=== PATIENT | female | born 1955 | race Caucasian/White ===

== ENCOUNTER 2017-06-27 08:36 | Emergency (ER) | payer OTHER ==
[~2017-06-27] VITALS: Ht 162.6 cm; Wt 63.5 kg
[~2017-06-27 08:36] MED LIST: ASA81 MG PO; Z.0.ALPRAZOLAM1 MG PO; Z.0.NEXIUM40 MG PO; Z.1.DIOVAN HCT 1601 PO; [UNRECOGNIZED DRUG - CODE] PO
--- NOTE | 2017-06-27 10:43 | Diagnostic Imaging Report ---
EXAM: WRIST COMPLETE LEFT DATE: 06/27/2017 10:14 AM INDICATION: Fall COMPARISON: None FINDINGS: Splint material obscures detail. Impacted distal radial metaphyseal fracture present with probable intra-articular extension. Almost thyroid inadequately evaluated. 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 Questionable lucency scaphoid waist. IMPRESSION: Impacted distal radial metaphyseal fracture with possible intra-articular extension. Probable nondisplaced radial styloid fracture. Scaphoid incompletely evaluated. Nondisplaced fracture possible. Signed by: Dr. Higinio Guzman MD on 06/27/2017 10:40 AM
--- NOTE | 2017-06-27 10:44 | Diagnostic Imaging Report ---
EXAM: FOREARM LEFT 2 VIEW DATE: 06/27/2017 9:43 AM INDICATION: Fall COMPARISON: None FINDINGS: Impacted distal radial metaphyseal fracture present. Ulnar styloid fracture suspected. Remainder of forearm unremarkable. IMPRESSION: Wrist fractures separately described. Signed by: Dr. Higinio Guzman MD on 06/27/2017 10:41 AM
[2017-06-27] MEDS ORDERED: HYDROCODONE/APAP 10MG-325MG TAB PO ONE (10:45)
--- NOTE | 2017-06-27 10:45 | Diagnostic Imaging Report ---
EXAM: RIBS UNILAT W/CXR DATE: 06/27/2017 9:43 AM INDICATION: Fall COMPARISON: None FINDINGS: The heart is not enlarged. There is no pneumothorax. Hazy opacity overlies the left lung base. No depressed rib fracture identified. IMPRESSION: Minimal left basilar atelectasis. No definite depressed rib fracture. Signed by: Dr. Higinio Guzman MD on 06/27/2017 10:42 AM
--- NOTE | 2017-06-27 11:56 | Diagnostic Imaging Report ---
EXAM: HAND 3+ VIEWS LEFT DATE: 06/27/2017 10:47 AM INDICATION: Rule out scaphoid fracture COMPARISON: Radiographs of same day FINDINGS: Three-view left hand. Splint material obscures detail. Impacted distal radial fracture with intra-articular extension again noted. No distinct step-off or gap identified. There is a 5 faint lucency in the scaphoid waist and the ulnar styloid. IMPRESSION: Impacted distal radial intra-articular fracture and nondisplaced ulnar styloid fracture present. Lucency in the scaphoid waist raises question of nondisplaced fracture. Signed by: Dr. Higinio Guzman MD on 06/27/2017 11:53 AM
[2017-07-02] MEDS ORDERED: SINEMET 25-1001 EACH PO (12:01)
[2017-07-02] MEDS ORDERED: DIOVAN160 MG PO (12:02)
[2017-07-02] MEDS ORDERED: PANTOPRAZOLE SO40 MG PO (12:02)
[2017-07-02] MEDS ORDERED: PROBIOTIC & AC1 EACH PO (12:02)
[2017-07-02] MEDS ORDERED: CALCIUM CARBON500 MG PO (12:03)
[2017-07-02] MEDS ORDERED: SERTRALINE HCL50 MG PO (12:03)
[2017-07-02] MEDS ORDERED: VITAMIN D400 UNIT PO (12:04)
[2017-07-02] MEDS ORDERED: FEOSOL45 MG PO (12:05)
[2017-07-02] MEDS ORDERED: FLINTSTONES1 EACH PO (12:06)
[2017-07-02] MEDS ORDERED: METOPROLOL SUCC25 MG PO (12:06)
[2017-07-02] MEDS ORDERED: CRESTOR10 MG PO (12:07)
[2017-07-02] MEDS ORDERED: AZILECT1 MG PO (12:08)
== END 2017-06-27 12:55 | disposition home or self-care (01) ==
LOC: ER 08:36
DX: S52.572A Other intraarticular fracture of lower end of left radius, initial encounter for closed fracture (principal); W01.0XXA Fall on same level from slipping, tripping and stumbling without subsequent striking against object, initial encounter; Y93.89 Activity, other specified; Y92.511 Restaurant or cafe as the place of occurrence of the external cause; G20 Parkinson's disease; R07.81 Pleurodynia
CPT/HCPCS: 71101; 99283

== ENCOUNTER → 2017-07-05 | Day surgery (SDC) | payer OTHER ==
[~2017-07-05] MED LIST changes: +AZILECT1 MG PO; +CALCIUM CARBON500 MG PO; +CEFAZOLIN SOD 1 GM VIAL ONE; +CRESTOR10 MG PO; +DEXAMETHASONE SOD PHOS INJ 4 MG/ML VIAL ONE; +DIOVAN160 MG PO; +FENTANYL CITRATE/PF 100MCG/2 ML INJ ONE; +FEOSOL45 MG PO; +FLINTSTONES1 EACH PO; +ISOFLURANE INHAL SOLN 250 ML BTL INH ONE; +KETOROLAC TROMETHAMINE 30 MG/ML VIAL ONE; +LIDOCAINE HCL 2% LOCAL INJ 5 ML SDV VIAL INJ ONE; +METOPROLOL SUCC25 MG PO; +MIDAZOLAM HCL 2 MG/2 ML VIAL ONE; +ONDANSETRON HCL INJ 2 MG/ML VIAL ONE; +PANTOPRAZOLE SO40 MG PO; +PROBIOTIC & AC1 EACH PO; +PROPOFOL IV EMULSION 10 MG/ML 20 ML VIAL ONE; +SERTRALINE HCL50 MG PO; +SINEMET 25-1001 EACH PO; +VITAMIN D400 UNIT PO
--- NOTE | 2017-07-05 08:22 | Operative Report ---
DATE OF PROCEDURE: July 05, 2017 EMERGENCY COMMUNICATIONS OFFICER: Bridger Rader PA-C The patient was brought to the operating room for induction of anesthesia. Throughout this case, my PA's assistance was necessary for retraction of soft tissue and positioning of the extremity. This allows for efficient and technically successful execution of the operation and is considered medically necessary. PREOPERATIVE DIAGNOSIS: Displaced left distal radius fracture. POSTOPERATIVE DIAGNOSIS: Displaced left distal radius fracture. PROCEDURE: Closed reduction and percutaneous pin fixation of left distal radius. INDICATIONS: The patient is a 62-year-old lady who has an angulated left distal radius fracture. She also has underlying osteoporosis. The findings and options were discussed in the clinic. She was very anxious and not interested in any attempts at a closed reduction in the clinic. We plan on a closed suction with percutaneous pin fixation in the operating room. The risks and benefits were discussed. The underlying osteoporosis was discussed. She states she understands and wishes to proceed. DESCRIPTION OF PROCEDURE: The patient was brought to the operating room and placed under general anesthetic. Her left upper extremity was prepped and draped in a sterile manner. A preoperative time out was performed. A closed reduction was performed. Satisfactory reduction was confirmed with a C-arm image intensifier. A single 0.062 K-wire was placed from the radial styloid down the radial shaft. This was placed with a volar inclination. The pin was cut short and capped after final x-rays confirmed satisfactory reduction and positioning of the hardware. A sterile bandage was applied. She was placed into a well-molded sugar-tong splint. There was no blood loss. All needle and sponge counts were correct. Job#: [id number] ROJELIO
== END | disposition home or self-care (01) ==
LOC: OR 06:57
PROVIDERS: ATTEND Specialist
DX: S52.532A Colles' fracture of left radius, initial encounter for closed fracture (principal); S22.32XA Fracture of one rib, left side, initial encounter for closed fracture; M81.0 Age-related osteoporosis without current pathological fracture; I10 Essential (primary) hypertension; G20 Parkinson's disease; K21.9 Gastro-esophageal reflux disease without esophagitis; W01.0XXA Fall on same level from slipping, tripping and stumbling without subsequent striking against object, initial encounter; Y92.511 Restaurant or cafe as the place of occurrence of the external cause; Z01.810 Encounter for preprocedural cardiovascular examination; Z79.82 Long term (current) use of aspirin
CPT/HCPCS: 25606; 93005; J0690; J1100; J1885; J2001; J2250; J2405; 76000

== ENCOUNTER 2018-01-27 11:55 | Inpatient (IN) | payer OTHER ==
[~2018-01-27] VITALS: Ht 162.6 cm; Wt 63.5 kg
[~2018-01-27 11:55] MED LIST changes: -CEFAZOLIN SOD 1 GM VIAL ONE; -DEXAMETHASONE SOD PHOS INJ 4 MG/ML VIAL ONE; -FENTANYL CITRATE/PF 100MCG/2 ML INJ ONE; -ISOFLURANE INHAL SOLN 250 ML BTL INH ONE; -KETOROLAC TROMETHAMINE 30 MG/ML VIAL ONE; -LIDOCAINE HCL 2% LOCAL INJ 5 ML SDV VIAL INJ ONE; -MIDAZOLAM HCL 2 MG/2 ML VIAL ONE; -ONDANSETRON HCL INJ 2 MG/ML VIAL ONE; -PROPOFOL IV EMULSION 10 MG/ML 20 ML VIAL ONE
[2018-01-27] MEDS ORDERED: LOSARTAN POTASS25 MG PO (12:46)
[2018-01-27 12:47] LABS: BASOPHILS % 0.2 % (0.0-1.0); EOSINOPHILS % 0.1 % (0.0-6.0); HEMATOCRIT 33.1 % (34.2-44.1); LYMPHOCYTES # (AUTO) 0.8 (1.0-3.2); LYMPHOCYTES % 7.9 % (18.0-39.1); MEAN CORPUSCULAR HEMOGLOBIN 30.8 pg (28-32); MEAN CORPUSCULAR HGB CONC 33.2 g/dL (31-35); MEAN CORPUSCULAR VOLUME 92.7 fL (81-99); MONOCYTES # (AUTO) 0.8 (0.2-0.8); MONOCYTES % 8.3 % (4.4-11.3); NEUTROPHILS # (AUTO) 7.9 (2.1-6.9); NEUTROPHILS % 82.6 % (38.7-80.0); PLATELET COUNT 258 x10e3/uL (140-360); RED BLOOD COUNT 3.57 x10e6/uL (3.6-5.1); RED CELL DISTRIBUTION WIDTH 13.1 % (11.7-14.4)
[2018-01-27 13:07] LABS: ALANINE AMINOTRANSFERASE 36 IU/L (0-55); ALBUMIN 3.3 g/dL (3.5-5.0); ALBUMIN/GLOBULIN RATIO 1.1 (0.8-2.0); ALKALINE PHOSPHATASE 76 IU/L (40-150); ANION GAP 15.7 mmol/L (8-16); BLOOD UREA NITROGEN 13 mg/dL (7-26); BUN/CREATININE RATIO 21 (6-25); CALCIUM 8.9 mg/dL (8.4-10.2); CARBON DIOXIDE 22 mmol/L (22-29); CHLORIDE 102 mmol/L (98-107); CREATININE, SERUM 0.63 mg/dL (0.57-1.11); EST GLOMERULAR FILTRATION RATE > 60 ML/MIN (60-); GLUCOSE 100 mg/dL (74-118); POTASSIUM 3.7 mmol/L (3.5-5.1); SODIUM 136 mmol/L (136-145)
[2018-01-27 13:18] LABS: AMPHETAMINES SCREEN,URINE NEGATIVE (NEGATIVE); BENZODIAZEPINES SCREEN,URINE NEGATIVE (NEGATIVE); PHENCYCLIDINE SCREEN,URINE NEGATIVE (NEGATIVE)
[2018-01-27 13:23] LABS: CLARITY,URINE CLEAR (CLEAR); COLOR,URINE YELLOW (YELLOW); LEUKOCYTE ESTERASE ,URINE NEGATIVE (NEGATIVE); NITRITE,URINE NEGATIVE (NEGATIVE); PROTEIN,URINE DIPSTICK NEGATIVE (NEGATIVE)
[2018-01-27 13:24] LABS: CREATINE KINASE MB 0.4 ng/mL (0-5.0)
[2018-01-27 13:24] LABS: BILIRUBIN,URINE NEGATIVE (NEGATIVE); KETONES,URINE NEGATIVE (NEGATIVE); URINE UROBILINOGEN 0.2 mg/dL (0.2 - 1)
[2018-01-27 13:26] LABS: BACTERIA,URINE FEW /HPF; EPITHELIAL CELLS,URINE FEW /LPF; RBC,URINE 0-5 /HPF (0-5); WBC,URINE (MAN) 0-5 /HPF (0-5)
--- NOTE | 2018-01-27 13:37 | Diagnostic Imaging Report ---
ADDENDUM #1 Dose modulation, iterative reconstruction, and/or weight based adjustment of the mA/kV was utilized to reduce the radiation dose to as low as reasonably achievable. Signed by: Dr. Sally Lau M.D. on 01/31/2018 9:59 AM ORIGINAL REPORT EXAMINATION: Head CT HISTORY: Altered mental status, confusion COMPARISON: None. TECHNIQUE: Multidetector axial images were obtained without contrast from the foramen magnum to the vertex . The images were reconstructed using brain and bone algorithms. Thin section brain images were reformatted into coronal and sagittal planes. Image quality: Motion/streaking artifact limits the evaluation of the skull base and posterior cranial fossa. FINDINGS: Parenchyma: 1. Few scattered white matter hypodensities, most likely nonspecific mild chronic microvascular ischemic changes. 2. No mass or hemorrhage. No CT evidence of acute territorial vascular insult. Extra-axial spaces:No abnormal density. No extra-axial fluid collections Brain volume: Normal for age. Ventricles: No hydrocephalus or displacement. Arteries: No density suggestive of thrombus. Dural sinuses: No abnormal density. Extra-axial spaces: No abnormal density. Foramen magnum: No mass, Chiari malformation, or basilar invagination. Sella: No obvious mass. Paranasal/mastoid sinuses: Postoperative changes seen in the partially visualized nasoethmoidal regions and ostiomeatal units. Skull/Scalp: No lytic or blastic lesions. No fractures. IMPRESSION: 1. No intracranial hemorrhage or cortical infarcts. 2. Mild chronic microvascular ischemic changes. Signed by: Dr. Sally Lau M.D. on 01/27/2018 1:34 PM
[2018-01-27] MEDS: CEFEPIME HCL 1 GM VIAL IV SCH ×2 (13:38→20:27)
[2018-01-27] MEDS ORDERED: ACETAMINOPHEN 1000 MG/100 ML IV STA (13:38)
--- NOTE | 2018-01-27 13:52 | Diagnostic Imaging Report ---
EXAMINATION: CT of right shoulder, without contrast. TECHNIQUE: Axial spiral CT images of the right shoulder were performed. No intravenous contrast was administered. Coronal and sagittal reformatted images in bone and soft tissue windows were obtained. CLINICAL HISTORY: Pain and confusion, AMS, suspected fracture COMPARISON: None. FINDINGS: Acute, comminuted fracture of the right humeral head (at least 3 part). The humeral head remains aligned with the glenoid. High density material anterior to the glenohumeral joint (series 4, image 31), likely reflect hemarthrosis. No other acute, displaced fracture. Mild subcutaneous soft tissue stranding in the lateral aspect at the level of the midhumerus, without focal mass or fluid collection (series 4, image 52) . Visualized portions of the right lung are clear. Partially visualized right-sided breast implant. IMPRESSION: 1. Acute, comminuted fracture of the right humeral head (at least 3 part). The humeral head remains aligned with the glenoid. 2. Associated hemarthrosis. Signed by: Dr. Pato Long M.D. on 01/27/2018 1:48 PM
[2018-01-27] MEDS ORDERED: ONDANSETRON HCL INJ 2 MG/ML VIAL IV STA (14:08)
--- NOTE | 2018-01-27 14:12 | Diagnostic Imaging Report ---
Examination: Single AP view of the chest. COMPARISON: CT shoulder 01/27/2018 INDICATION: Status post fall 2010 days ago, chest pain IMPRESSION: 1. Lines and Tubes: None 2. Lungs are grossly clear. No consolidation or effusion. 3. Cardiomediastinal silhouette is normal. Pulmonary vasculature is normal. 4. No acute bony abnormalities. No acute, displaced fracture or dislocation in in the chest in this limited view. Please see CT shoulder performed same date for description of right shoulder fracture. Degenerative changes in the thoracic spine. Signed by: Dr. Pato Long M.D. on 01/27/2018 2:09 PM
[2018-01-27] MEDS ORDERED: ACETAMINOPHEN 325 MG TAB PO PRN (16:15)
[2018-01-27 16:24] VITALS: BP 112/65
[2018-01-27] MEDS: ACETAMINOPHEN/CODEINE 300MG - 30MG TAB PO PRN ×2 (16:47→23:00)
[2018-01-27] MEDS ORDERED: TYLENOL WITH C1 EACH PO (17:58)
[2018-01-27 20:00] VITALS: BP 107/59
[2018-01-27] MEDS: CRESTOR 10MG PO SCH (20:27)
[2018-01-27] MEDS: RASAGILINE 1 MG TAB PO SCH (20:27)
[2018-01-27] MEDS: CARBIDOPA/LEVODOPA 25/100 TAB PO SCH (20:27)
[2018-01-27] MEDS ORDERED: SIMVASTATIN 40 MG TAB PO SCH (21:00)
[2018-01-27] MEDS: METOPROLOL SUCCINATE 25 MG TAB XL PO SCH (21:45)
[2018-01-28] VITALS (8 sets, daily range): BP systolic 104–129; BP diastolic 57–72
[2018-01-28] MEDS: ACETAMINOPHEN/CODEINE 300MG - 30MG TAB PO PRN ×3 (05:00→18:48)
[2018-01-28] MEDS: CEFEPIME HCL 1 GM VIAL IV SCH ×2 (05:03→21:10)
[2018-01-28] MEDS: LOSARTAN POTASSIUM 25 MG TAB PO SCH (09:00)
[2018-01-28] MEDS: SERTRALINE HCL 50 MG TAB PO SCH (09:00)
[2018-01-28] MEDS: CARBIDOPA/LEVODOPA 25/100 TAB PO SCH ×3 (09:00→21:10)
[2018-01-28 11:40] LABS: BASOPHILS % 0.2 % (0.0-1.0); EOSINOPHILS % 0.3 % (0.0-6.0); HEMATOCRIT 32.8 % (34.2-44.1); HEMOGLOBIN 10.7 g/dL (12.0-16.0); LYMPHOCYTES # (AUTO) 1.6 (1.0-3.2); LYMPHOCYTES % 11.4 % (18.0-39.1); MEAN CORPUSCULAR HEMOGLOBIN 31.2 pg (28-32); MEAN CORPUSCULAR HGB CONC 32.6 g/dL (31-35); MEAN CORPUSCULAR VOLUME 95.6 fL (81-99); MONOCYTES # (AUTO) 0.9 (0.2-0.8); MONOCYTES % 6.8 % (4.4-11.3); NEUTROPHILS # (AUTO) 11.1 (2.1-6.9); NEUTROPHILS % 80.6 % (38.7-80.0); PLATELET COUNT 235 x10e3/uL (140-360); RED BLOOD COUNT 3.43 x10e6/uL (3.6-5.1); RED CELL DISTRIBUTION WIDTH 13.4 % (11.7-14.4)
[2018-01-28 11:58] LABS: ANION GAP 12.4 mmol/L (8-16); BLOOD UREA NITROGEN 9 mg/dL (7-26); BUN/CREATININE RATIO 16 (6-25); CALCIUM 8.9 mg/dL (8.4-10.2); CARBON DIOXIDE 23 mmol/L (22-29); CHLORIDE 103 mmol/L (98-107); CREATININE, SERUM 0.57 mg/dL (0.57-1.11); EST GLOMERULAR FILTRATION RATE > 60 ML/MIN (60-); GLUCOSE 99 mg/dL (74-118); MAGNESIUM 1.9 MG/DL (1.3-2.1); POTASSIUM 3.4 mmol/L (3.5-5.1); SODIUM 135 mmol/L (136-145)
[2018-01-28] MEDS: CRESTOR 10MG PO SCH (21:10)
[2018-01-28] MEDS: RASAGILINE 1 MG TAB PO SCH (21:10)
[2018-01-28] MEDS: METOPROLOL SUCCINATE 25 MG TAB XL PO SCH (21:11)
[2018-01-29] VITALS (7 sets, daily range): BP systolic 101–139; BP diastolic 55–76
[2018-01-29 05:22] LABS: BASOPHILS % 0.4 % (0.0-1.0); EOSINOPHILS # (AUTO) 0.1 (0.0-0.4); EOSINOPHILS % 1.2 % (0.0-6.0); HEMATOCRIT 29.9 % (34.2-44.1); HEMOGLOBIN 9.7 g/dL (12.0-16.0); LYMPHOCYTES # (AUTO) 1.2 (1.0-3.2); LYMPHOCYTES % 13.9 % (18.0-39.1); MEAN CORPUSCULAR HEMOGLOBIN 30.9 pg (28-32); MEAN CORPUSCULAR HGB CONC 32.4 g/dL (31-35); MEAN CORPUSCULAR VOLUME 95.2 fL (81-99); MONOCYTES # (AUTO) 0.7 (0.2-0.8); MONOCYTES % 8.1 % (4.4-11.3); NEUTROPHILS # (AUTO) 6.3 (2.1-6.9); NEUTROPHILS % 75.7 % (38.7-80.0); PLATELET COUNT 245 x10e3/uL (140-360); RED BLOOD COUNT 3.14 x10e6/uL (3.6-5.1); RED CELL DISTRIBUTION WIDTH 13.4 % (11.7-14.4)
[2018-01-29] MEDS: ACETAMINOPHEN/CODEINE 300MG - 30MG TAB PO PRN ×3 (05:32→21:29)
[2018-01-29 05:45] LABS: ANION GAP 10.4 mmol/L (8-16); BLOOD UREA NITROGEN 11 mg/dL (7-26); BUN/CREATININE RATIO 20 (6-25); CALCIUM 8.9 mg/dL (8.4-10.2); CARBON DIOXIDE 25 mmol/L (22-29); CHLORIDE 105 mmol/L (98-107); CREATININE, SERUM 0.56 mg/dL (0.57-1.11); EST GLOMERULAR FILTRATION RATE > 60 ML/MIN (60-); GLUCOSE 96 mg/dL (74-118); MAGNESIUM 2.1 MG/DL (1.3-2.1); POTASSIUM 3.4 mmol/L (3.5-5.1); SODIUM 137 mmol/L (136-145)
[2018-01-29] MEDS: SERTRALINE HCL 50 MG TAB PO SCH (08:30)
[2018-01-29] MEDS: CARBIDOPA/LEVODOPA 25/100 TAB PO SCH ×3 (08:30→21:28)
[2018-01-29] MEDS: LOSARTAN POTASSIUM 25 MG TAB PO SCH (08:30)
[2018-01-29] MEDS: CEFEPIME HCL 1 GM VIAL IV SCH ×2 (08:30→21:28)
[2018-01-29] MEDS: POTASSIUM CHLORIDE 20 MEQ TAB CR PO SCH (10:43)
[2018-01-29] MEDS: ACYCLOVIR 200 MG CAP PO SCH (17:06)
--- NOTE | 2018-01-29 17:35 | Consultation ---
DATE OF CONSULTATION: January 29, 2018 CHIEF COMPLAINT: Right shoulder pain. HISTORY OF PRESENT ILLNESS: This patient is a pleasant, 62-year-old female who is well known to us. She was seen in my office last week on January 20 for a right proximal humerus fracture, which occurred on January 17. The patient reportedly [place] on her right side. She brought x-rays in my office last week, which were reviewed. These showed a mildly proximal humerus fracture. She was initially sent for a CT scan to further delineate the fracture. She presented to the hospital earlier this week with altered mental status and fever of unknown origin. She had her CT scan ordered and done here in the hospital and I was consulted to follow up. The patient states she is doing well. The patient no longer has altered mental status at this point. She states she is doing well. She states her pain is well controlled. She denies any paresthesias in her right upper extremity. PAST MEDICAL HISTORY: Parkinson disease. PAST SURGICAL HISTORY: Noncontributory. SOCIAL HISTORY: The patient states she uses occasional alcohol. She states she quit smoking roughly 2 years ago. ALLERGIES: NO KNOWN DRUG ALLERGIES. REVIEW OF SYSTEMS: Deferred. PHYSICAL EXAMINATION GENERAL: She is in no apparent distress. She is awake, alert and oriented appropriately. Her right arm is in a sling. There is mild bruising and swelling in her upper arm. I did not test range of motion. Distal motor and sensory exams at the hands and wrists are normal. IMAGING: CT scan of her right shoulder shows a minimally displaced 3 part proximal humerus fracture. ASSESSMENT AND PLAN: This is a 62-year-old female with minimally displaced proximal humerus fracture. The findings and options are discussed with the patient. The fracture is in an acceptable position. I would recommend nonsurgical management. The patient is in agreement. She is going on 2 weeks from the fracture. I recommended repeat x-rays in 2 weeks. She will remain in a sling. She can remove this to shower. She will avoid raising the arm or any excessive range of motion. The patient states she understands the plan. She will follow up in my office in roughly 2 weeks for repeat x-rays of the right shoulder. No further inpatient orthopedic intervention is necessary at this time. Thank you for the consultation. Dictated by Bridger Rader PA-C Job#: [id number] GH
[2018-01-29] MEDS: RASAGILINE 1 MG TAB PO SCH (21:28)
[2018-01-29] MEDS: CRESTOR 10MG PO SCH (21:28)
[2018-01-29] MEDS: METOPROLOL SUCCINATE 25 MG TAB XL PO SCH (21:29)
[2018-01-30] VITALS: BP 123/70
[2018-01-30 03:59] LABS: ANION GAP 13.4 mmol/L (8-16); BLOOD UREA NITROGEN 11 mg/dL (7-26); BUN/CREATININE RATIO 19 (6-25); CALCIUM 8.3 mg/dL (8.4-10.2); CARBON DIOXIDE 21 mmol/L (22-29); CHLORIDE 106 mmol/L (98-107); CREATININE, SERUM 0.57 mg/dL (0.57-1.11); EST GLOMERULAR FILTRATION RATE > 60 ML/MIN (60-); GLUCOSE 89 mg/dL (74-118); MAGNESIUM 1.8 MG/DL (1.3-2.1); POTASSIUM 3.4 mmol/L (3.5-5.1); SODIUM 137 mmol/L (136-145)
[2018-01-30 04:00] VITALS: BP 119/66
[2018-01-30 05:57] LABS: BASOPHILS % 0.3 % (0.0-1.0); EOSINOPHILS # (AUTO) 0.1 (0.0-0.4); EOSINOPHILS % 1.4 % (0.0-6.0); HEMATOCRIT 31.1 % (34.2-44.1); HEMOGLOBIN 10.3 g/dL (12.0-16.0); LYMPHOCYTES # (AUTO) 1.6 (1.0-3.2); MEAN CORPUSCULAR HEMOGLOBIN 30.7 pg (28-32); MEAN CORPUSCULAR HGB CONC 33.1 g/dL (31-35); MEAN CORPUSCULAR VOLUME 92.6 fL (81-99); MONOCYTES # (AUTO) 0.6 (0.2-0.8); NEUTROPHILS # (AUTO) 5.3 (2.1-6.9); NEUTROPHILS % 68.3 % (38.7-80.0); PLATELET COUNT 304 x10e3/uL (140-360); RED BLOOD COUNT 3.36 x10e6/uL (3.6-5.1); RED CELL DISTRIBUTION WIDTH 13.2 % (11.7-14.4)
[2018-01-30 07:35] VITALS: BP 119/66
[2018-01-30 08:00] VITALS: BP 126/59
[2018-01-30] MEDS: CARBIDOPA/LEVODOPA 25/100 TAB PO SCH (08:30)
[2018-01-30] MEDS: SERTRALINE HCL 50 MG TAB PO SCH (08:30)
[2018-01-30] MEDS: ACYCLOVIR 200 MG CAP PO SCH (08:30)
[2018-01-30] MEDS: CEFEPIME HCL 1 GM VIAL IV SCH (08:30)
[2018-01-30] MEDS: POTASSIUM CHLORIDE 20 MEQ TAB CR PO SCH (08:30)
[2018-01-30] MEDS: LOSARTAN POTASSIUM 25 MG TAB PO SCH (08:30)
[2018-01-30] MEDS ORDERED: ACYCLOVIR200 MG PO (10:31)
[2018-01-30] MEDS ORDERED: TYLENOL WITH C1 EACH PO (10:44)
[2018-01-30] MEDS ORDERED: CEFTIN PO (10:44)
[2018-01-30] MEDS ORDERED: PYRIDIUM100 MG PO (10:44)
[2018-01-30 12:00] VITALS: BP 121/73
[2018-01-30] MEDS: ACETAMINOPHEN/CODEINE 300MG - 30MG TAB PO PRN (12:15)
--- NOTE | 2018-01-30 22:14 | Discharge Summary ---
ADMISSION DIAGNOSES: 1. Altered mental status. 2. Sepsis. 3. Dysuria. 4. Hypertension. 5. Anxiety. 6. Hyperlipidemia. 7. Parkinson's. DISCHARGE DIAGNOSES: 1. Altered mental status. 2. Sepsis. 3. Dysuria. 4. Hypertension. 5. Anxiety. 6. Hyperlipidemia. 7. Parkinson's. 8. Ruled out cerebrovascular accident. 9. Ruled out urinary tract infection. 10. Comminuted fracture of the right humeral head. HISTORY: Patient has a history of Parkinson's disease, hypertension, hyperlipidemia, anxiety. Surgical history of gastric bypass, breast implants, and sinus surgery x2. HOSPITAL COURSE: A 62-year-old female with history of Parkinson's, admits to increased confusion last night per family. The patient fell on January 17 while walking up the stairs and broke her right arm. She was given Tylenol No. 3 for pain. She saw ortho doc on January 20 who then said that the Tylenol No. 3 would interact with her Parkinson's meds and could cause confusion. Patient also admits to dysuria. She denies syncope, dizziness, fever, cough, and open wounds. The pain in the right upper extremity is worse with movement and improved with pain medications. On admission, patient had a CAT scan of the brain which was negative. Shoulder CT that showed the acute comminuted fracture of the right humeral head, and a chest x-ray which was negative. Patient also had blood cultures drawn which were negative and urine culture that was negative. Patient was started on cefepime on admission, did not have any fevers after her fever of 103 on admission, and white count remains normal after day of admission. Patient will be discharged home with the right upper extremity in sling per ortho rec. She will be discharged home with Ceftin for 4 more days, Pyridium due to urinary spasms. She will follow up with ortho as discussed and primary care in 1 to 2 weeks. She will resume other home medications. Patient understands discharge instructions and agrees to plan. Vital signs stable. Patient afebrile on day of discharge. Dictated by Daly Gomez NP KAROLINA GALEANO MD Job#: [id number]
== END 2018-01-30 13:54 | disposition home or self-care (01) | DRG 93 ==
LOC: ER 11:55 → ERHOLD 14:24 → MED/SURG3 15:11
PROVIDERS: ADMIT Internal Medicine; ATTEND Internal Medicine
DX: G92 Toxic encephalopathy (principal); R50.9 Fever, unspecified; G20 Parkinson's disease; I10 Essential (primary) hypertension; E78.5 Hyperlipidemia, unspecified; F41.9 Anxiety disorder, unspecified; Z98.84 Bariatric surgery status; Z83.3 Family history of diabetes mellitus; Z80.9 Family history of malignant neoplasm, unspecified; Z87.891 Personal history of nicotine dependence; R30.0 Dysuria; S42.201D Unspecified fracture of upper end of right humerus, subsequent encounter for fracture with routine healing; T42.8X5A Adverse effect of antiparkinsonism drugs and other central muscle-tone depressants, initial encounter; T40.2X5A Adverse effect of other opioids, initial encounter
CPT/HCPCS: 36415; 51700; 70450; 71045; 80048; 80053; 80307; 80329; 81001; 82140; 82550; 82553; 83605; 83735; 84484; 85025; 87040; 87086; 87400; 93005; 93306; 93971; 99285; J0692; J2405

== ENCOUNTER 2018-03-05 22:21 | Emergency (ER) | payer OTHER ==
[~2018-03-05] VITALS: Ht 162.6 cm; Wt 63.5 kg
[~2018-03-05 22:21] MED LIST changes: +ACYCLOVIR200 MG PO; +CEFTIN PO; +LOSARTAN POTASS25 MG PO; +PYRIDIUM100 MG PO; +TYLENOL WITH C1 EACH PO
[2018-03-05] MEDS ORDERED: HYDROCODONE/APAP 7.5MG-325MG 1 EA TAB PO ONE (23:00)
[2018-03-05] MEDS ORDERED: HYDROCODONE/APAP 7.5MG-325MG 1 EA TAB ONE (23:02)
--- NOTE | 2018-03-06 00:27 | Diagnostic Imaging Report ---
EXAMINATION: Head CT without contrast. HISTORY:Status post fall. COMPARISON:CT brain from 01/27/2018. TECHNIQUE: Multidetector axial images were obtained from the foramen magnum to the vertex without contrast. The images were reconstructed using brain and bone algorithms. Thin section brain images were reformatted into coronal and sagittal planes. Dose modulation, iterative reconstruction, and/or weight based adjustment of the mA/kV was utilized to reduce the radiation dose to as low as reasonably achievable. Intravenous contrast: None IMAGE QUALITY: Acceptable. FINDINGS: Skull/scalp: No lytic or blastic. lesions. No surgical changes. Parenchyma: Unchanged nonspecific few, scattered supratentorial white matter hypodensity are likely related to small vessel ischemic changes. No acute hemorrhage, mass or acute major vascular territorial infarct. Arteries: No density suggestive of thrombosis. Dural sinuses: No abnormal density suggestive of thrombosis. Ventricles: No hydrocephalus or displacement. Extra-axial spaces: No abnormal density. Brain volume: Mild generalized cerebral volume loss. Craniocervical junction: No mass, Chiari malformation, or basilar invagination. Sella: No mass. Paranasal/mastoid sinuses: Imaged portions unremarkable. IMPRESSION: No acute intracranial abnormality. No change since CT brain from 01/27/2018. Mild generalized cerebral volume loss and mild supratentorial white matter microvascular ischemic changes. Signed by: Dr. Desiree Cabrera M.D. on 03/06/2018 12:25 AM
--- NOTE | 2018-03-06 01:00 | Diagnostic Imaging Report ---
WRIST COMPLETE RIGHT, FOREARM RIGHT 2 VIEW Comparison: 06/27/2017 left side Clinical history: \S\PAIN TO RIGHT WRIST FOLLOWING FALL \S\[id number] \S\0013 \S\Y Findings: Diffusely decreased bone mineralization. There is a comminuted, mildly impacted, intra-articular distal radial fracture with mild dorsal angulation and ventral displacement. Suspected nondisplaced ulnar styloid fracture and chronic adjacent ossicles. Moderate soft tissue swelling about the wrist. Impression: Impacted, comminuted intra-articular distal radial fracture and likely nondisplaced ulnar styloid fracture. Signed by: Dr Rosalba Cerda MD on 03/06/2018 12:37 AM
== END 2018-03-06 01:10 | disposition home or self-care (01) ==
LOC: ER 22:21
DX: S52.571A Other intraarticular fracture of lower end of right radius, initial encounter for closed fracture (principal); S52.614A Nondisplaced fracture of right ulna styloid process, initial encounter for closed fracture; W01.0XXA Fall on same level from slipping, tripping and stumbling without subsequent striking against object, initial encounter; Y92.008 Other place in unspecified non-institutional (private) residence as the place of occurrence of the external cause
CPT/HCPCS: 70450; 99283

== ENCOUNTER → 2018-03-15 | Day surgery (SDC) | payer OTHER ==
[~2018-03-15] MED LIST changes: +ACETAMINOPHEN/CODEINE 300MG - 30MG TAB ONE; +CEFAZOLIN SOD 1 GM VIAL ONE; +DEXAMETHASONE SOD PHOS INJ 4 MG/ML VIAL ONE; +FENTANYL CITRATE/PF 100MCG/2 ML INJ ONE; +HYDRALAZINE HCL 20 MG/ML VIAL ONE; +KETOROLAC TROMETHAMINE 30 MG/ML VIAL ONE; +LIDOCAINE HCL 2% LOCAL INJ 5 ML SDV VIAL INJ ONE; +MIDAZOLAM HCL 2 MG/2 ML VIAL ONE; +MORPHINE SULFATE 2 MG/ML SYR ONE; +ONDANSETRON HCL INJ 2 MG/ML VIAL ONE; +PROPOFOL IV EMULSION 10 MG/ML 20 ML VIAL ONE; +SEVOFLURANE INHAL SOLN 250 ML PEN BTL ONE
[2018-03-15 14:00] VITALS: BP 137/84
--- OUTSIDE RECORDS SUMMARY | 2018-03-29 09:19 | XMS REPORT | Clinical Summary ---
Author Author [facility] Organization [facility] Address Unknown Phone Unavailable Care Team Providers Care Electrical Laboratory Technician Name Role Phone Bernardo Rivero MD PCP Allergies Active Allergy Reactions Severity Noted Date Comments No Known Drug Allergies 11/12/2015 Current Medications Prescription Sig. Disp. Refills Start End Date Status Date pantoprazole (PROTONIX) 05/18/20 Active 40 MG EC tablet 16 metoprolol succinate XL Take 25 mg by mouth. Active (TOPROL-XL) 25 mg 24 hr tablet valsartan (DIOVAN) 160 MG Take 160 mg by mouth. Active tablet UNABLE TO FIND Citracal plus D Active D3 5,000 IU Probiotic [place] multivitamin half carbidopa-levodopa TK 1 T PO TID 2 05/20/20 Active (SINEMET) 25-100 mg per 17 tablet cyclobenzaprine PRN 0 02/29/20 Active (FLEXERIL) 10 mg tablet 17 LORAZepam (ATIVAN) 0.5 MG TK 1 T PO QD PRN 1 05/04/20 Active tablet 17 nystatin (MYCOSTATIN) PRN 0 05/17/20 Active 100,000 unit/gram cream 17 rasagiline (AZILECT) 1 MG 03/26/20 Active tablet 17 sertraline (ZOLOFT) 25 MG TK 1 T PO QD 1 05/24/20 Active tablet 17 rosuvastatin (CRESTOR) 5 TK 1 T PO QHS 0 05/24/20 Active MG tablet 17 ASPIRIN ORAL Take by mouth. Active FERROUS SULFATE (IRON Take by mouth. Active ORAL) venlafaxine XR venlafaxine ER 37.5 mg 06/01/20 Discontin (EFFEXOR-XR) 37.5 MG 24 capsule,extended release 17 ued hr capsule 24 hr flecainide (TAMBOCOR) 100 Take 100 mg by mouth. 06/01/20 Discontin MG tablet 17 ued Active Problems Problem Noted Date Other osteoporosis without current pathological fracture 06/01/2017 H/O bariatric surgery 06/01/2017 Parkinson's disease (HCC) 06/01/2017 Encounters Date Type Specialty Care Team Description 02/17/2018 Telephone Endocrinology Bernardo Rivero MD 02/17/2018 Orders Only Endocrinology Bernardo Rivero MD 11/30/2017 Infusion Infusion Therapy Other osteoporosis without current pathological fracture (Primary Dx) 09/17/2017 Orders Only Infusion Therapy Geovanna Bauman RN 09/13/2017 Telephone Infusion Therapy Geovanan Bauman RN 08/18/2017 Telephone Infusion Therapy Geovanna Bauman RN 08/18/2017 Telephone Infusion Therapy Geovanna Bauman RN 06/17/2017 Telephone Infusion Therapy Geovanna Bauman RN 06/01/2017 Office Visit Endocrinology Bernardo Rivero MD Other osteoporosis without current pathological fracture (Primary Dx); H/O bariatric surgery; Parkinson's disease after 03/14/2017 Family History Medical History Relation Name Comments Heart attack Father Alzheimer's disease Mother Melanoma Other siblings Relation Name Status Comments Father Mother Other siblings Social History Tobacco Use Types Packs/Day Years Used Date Current Every Day Smoker Smokeless Tobacco: Current User Comments: 1 pack/2 weeks Alcohol Use Drinks/Week oz/Week Comments Yes 3 Glasses of 1.8 moderate wine Sex Assigned at Date Recorded Not on file Last Filed Vital Signs Vital Sign Reading Time Taken Blood Pressure 122/70 11/30/2017 10:39 AM CDT Pulse 54 11/30/2017 10:39 AM CDT Temperature - - Respiratory Rate - - Oxygen Saturation - - Inhaled Oxygen - - Concentration Weight 71.1 kg (156 lb 12.8 oz) 06/01/2017 1:35 PM [employer] Height 161.3 cm (5' 3.5") 06/01/2017 1:35 PM [employer] Body Mass Index 27.34 06/01/2017 1:35 PM [employer] Plan of Treatment Health Maintenance Due Date Last Done Comments CERVICAL CANCER SCREENING 1978 BREAST CANCER SCREENING 2007 SHINGRIX VACCINE (#1) 2007 ZOSTER VACCINE 2017 INFLUENZA VACCINE 01/12/2018 03/30/2017, 05/06/2016, 04/20/2012 COLON CANCER SCREENING 04/12/2025 04/12/2015 Procedures Procedure Name Priority Date/Time Associated Diagnosis Comments VITAMIN D 25 HYDROXY Routine 06/01/2017 Other osteoporosis Results for this LEVEL 1:48 PM [employer] without current procedure are in the pathological fracture results section. PARATHYROID HORMONE Routine 06/01/2017 Other osteoporosis Results for this 1:48 PM [employer] without current procedure are in the pathological fracture results section. BONE SPECIFIC ALK Routine 06/01/2017 Other osteoporosis Results for this PHOSPHATASE 1:48 PM [employer] without current procedure are in the pathological fracture results section. BASIC METABOLIC PANEL Routine 06/01/2017 Other osteoporosis Results for this 1:48 PM [employer] without current procedure are in the pathological fracture results section. BONE DENSITY Routine 06/01/2017 Osteoporosis Results for this 1:20 PM [employer] procedure are in the results section. after 03/14/2017 Results * Bone specific alk phosphatase (06/01/2017 1:48 PM) Tandem-R Ostase 14.1 ug/L [facility] Comment: Premenopausal Women: 6.0 - 22.7 Postmenopausal Women: 8.1 - 31.6 Specimen Blood Narrative Performed At [facility]formed at: [facility] [address], [id number] Practical Nurse Clinical Coordinator: Herson Vivas MD, Phone:[phone] Performing Organization Address [facility] Phone Number [facility] * Vitamin D 25 hydroxy level (06/01/2017 1:48 PM) Vitamin D, 25-hydroxy 49.0 30.0 - 100.0 ng/mL [facility] Comment: Vitamin D deficiency has been defined by the [place] of Medicine and an Endocrine Society practice guideline as a level of serum 25-OH vitamin D less than 20 ng/mL (1,2). The Endocrine Society went on to further define vitamin D insufficiency as a level between 21 and 29 ng/mL (2). 1. IOM ([place] of Medicine). 2010. Dietary reference intakes for calcium and D. [place]: The National Academies Press. 2. Keiko GUO, Sheree DUMONT, Alessandro FLORENCE, et al. Evaluation, treatment, and prevention of vitamin D deficiency: an Endocrine Society clinical practice guideline. JCEM. 2010; 96(7):1911-30. Specimen Blood Narrative Performed At Performed at: [facility] [address], [id number] Practical Nurse Clinical Coordinator: Nas Estrada MD, Phone:[phone] Performing Organization Address [facility] Phone Number [facility] * Parathyroid hormone (06/01/2017 1:48 PM) PTH 30 15 - 65 pg/mL [facility] Specimen Blood Narrative Performed At Performed at: - [facility] [address], [id number] Practical Nurse Clinical Coordinator: Nas Estrada MD, Phone:[phone] Performing Organization Address [facility] Phone Number [facility] * Basic metabolic panel (06/01/2017 1:48 PM) Glucose 95 65 - 99 mg/dL [facility] BUN, whole blood 8 6 - 24 mg/dL [facility] Creatinine 0.62 0.57 - 1.00 mg/dL [facility] EGFR Non-Afr. [place] 99 >59 mL/min/1.73 [facility] EGFR 114 >59 mL/min/1.73 [facility] BUN/creatinine ratio 13 9 - 23 [facility] Sodium 142 134 - 144 mmol/L [facility] Potassium 4.2 3.5 - 5.2 mmol/L [facility] Chloride 102 96 - 106 mmol/L [facility] CO2 27 18 - 29 mmol/L [facility] Calcium 9.2 8.7 - 10.2 mg/dL [facility] Specimen Blood Narrative Performed At Performed at: - [facility] [address], [id number] Practical Nurse Clinical Coordinator: Nas Estrada MD, Phone:[phone] Performing Organization Address [facility] Phone Number [facility] * Bone Density (06/01/2017 1:20 PM) Narrative Performed At [facility] [address] [place] [address] Bone Density Report Name: Nisreen Mallory Sex: Female Age: 61 Ethnicity: White Height: 63.5 in Referring Provider: BERNARDO RIVERO Date of : 1955 Weight: 156.8lb Indication: Osteoporosis; prior fracture Accession number: [id number] Bone Density: Exam date 06/01/2017 Region BMD (g/cm2) T-score Z-score Classification AP Spine(L1-L4) 0.966 -0.70.7 Normal Femoral Neck(Left) 0.518 -3.0 -1.7 Osteoporosis Total Hip(Left) 0.690 -2.1 -1.1 Osteopenia Femoral Neck(Right) 0.515 -3.0 -1.7 Osteoporosis Total Hip(Right) 0.651 -2.4 -1.4 Osteopenia Total Hip Mean 0.671 -2.3 -1.3 Osteopenia World Health Organization criteria for BMD impression classify patients as Normal (T-score at or above 1.0), Osteopenia (T-score between 1.0 and 2.5), or Osteoporosis (T-score at or below 2.5). 10-year Fracture Risk: Major Osteoporotic Fracture 26% Hip Fracture 10% Reported Risk Factors: [place] (), T-score(WHO)=-2.9, BMI=27.3, previous fracture, smoking FRAX Version 3.08. Fracture probability calculated for an untreated patient. Fracture probability may be lower if the patient has received treatment. Previous Exams: Region Exam Date Age BMD (g/cm2) T-score BMD Change vs. Baseline BMD Change vs. Previous AP Spine(L1-L4) 06/01/2017 61 0.966 -0.7 0.9% 0.9% 05/28/2016 60 0.957 -0.8 Total Hip(Left) 06/01/2017 61 0.690 -2.1 -3.1% -3.1% 05/28/2016 60 0.712 -1.9 Total Hip(Right) 06/01/2017 61 0.651 -2.4 -3.9% -3.9% 05/28/2016 60 0.678 -2.2 *Denotes significance at 95% confidence level, LSC for AP Spine=0.022 g/cm2,LSC for Total Hip=0.027 g/cm2 Impression: The patient has established osteoporosis, based on the Left Femoral Neck T-score and the existence of a prior fracture. The patient has an estimated ten-year risk of hip fracture of 10% and an estimated ten-year risk of major fracture of 26%, based on the WHO FRAX algorithm for a patient not on therapy (NOF thresholds are 20% for a major fracture and 3% for a hip fracture). The patient has risk factors, including: smoking, previous fracture. Monitoring: No significant bone loss was observed at the spine. The hips have decreased about 3-4%. Discussion: HIGH RISK OF FRACTURE. BONE DENSITY IS UNDESIRABLY LOW AT ONE OR MORE SKELETAL SITES, CONSISTENT WITH POSTMENOPAUSAL OSTEOPOROSIS. This patient's lowest T-score, in a patient who has previously fractured, meets the World Health Organization's (WHO) criteria for severe osteoporosis. In untreated patients, the risk of osteoporotic fracture increases approximately two-fold for each 1.0 SD decrease in T-score.Low bone density is not the only risk factor for fracture; also consider factors such as patient's age, frailty or poor health, risk of falling, risk of injury, previous osteoporotic fracture, family history of osteoporosis, cigarette smoking, low body weight, etc. Not everyone with low bone mineral density has osteoporosis; osteomalacia and other metabolic bone disorders should also be considered. Patients who have osteoporosis should be evaluated for specific diseases and conditions (secondary causes) that may cause or contribute to bone loss. The [place] Association of Clinical Endocrinologists (AACE) and National Osteoporosis Foundation (NOF) recommend pharmacologic intervention for all postmenopausal women whose T-score is in this range. The patient should follow a healthful lifestyle (good nutrition with adequate calcium and vitamin D, and appropriate weight-bearing exercise). Follow-Up: Consider a repeat BMD and Vertebral Fracture Assessment (VFA) exam in 1-2 years or sooner if medically necessary, to reassess this patient's status. Reported by: Bernardo Rivero MD, MARTIN, MACE, FACP, CCD on 06/02/2017 6:51:00 AM. Performing Organization Address City/State/Zipcode Phone Number [facility] [address] [place] [address] after 03/14/2017 Insurance Payer Benefit Subscriber ID Type Phone Address Plan / Group [employer] xxxxxxxxx HMO/PPO THCARE CHOICE/CHO ICE + Work: [id number] [place] [id number] Home:
--- NOTE | 2018-04-07 15:27 | Operative Report ---
DATE OF PROCEDURE: March 15, 2018 INTERVENTIONAL TECHNOLOGIST: Bridger Rader PA-C The patient was brought to the operating room for induction of anesthesia. Throughout this case, my PA's assistance was necessary for retraction of soft tissue and positioning of the extremity. This allows for efficient and technically successful execution of the operation and is considered medically necessary. PREOPERATIVE DIAGNOSIS: Right distal radius fracture. POSTOPERATIVE DIAGNOSIS: Right distal radius fracture. PROCEDURE: Closed reduction and percutaneous pinning of right distal radius. INDICATIONS: The patient is a 62-year-old lady who has a displaced right distal radius fracture. We have discussed the findings and options. We plan on a closed reduction with percutaneous pin fixation. The risks and benefits have been discussed. She states she understands and wishes to proceed. DESCRIPTION OF PROCEDURE: The patient was brought to the operating room and placed under general anesthetic. Her right upper extremity was prepped and draped in a sterile manner. A C-arm image intensifier was used to assist in the procedure. A preoperative time out was performed. A closed reduction was performed. Two 0.062 K-wires were placed across the fracture site into the radial shaft. The pins were cut short and capped after intraoperative x-rays confirmed satisfactory reduction. The patient was placed into a sugar-tong splint. She was transported to the recovery room in stable condition. There was no blood loss. All needle and sponge counts were correct. Job#: [id number] [email or web address]
== END | disposition home or self-care (01) ==
LOC: OR 09:14
PROVIDERS: ATTEND Specialist
DX: S52.531A Colles' fracture of right radius, initial encounter for closed fracture (principal); S42.231A 3-part fracture of surgical neck of right humerus, initial encounter for closed fracture; G20 Parkinson's disease; K21.9 Gastro-esophageal reflux disease without esophagitis; I10 Essential (primary) hypertension; Z72.0 Tobacco use; W01.0XXA Fall on same level from slipping, tripping and stumbling without subsequent striking against object, initial encounter; Y92.008 Other place in unspecified non-institutional (private) residence as the place of occurrence of the external cause; Z01.810 Encounter for preprocedural cardiovascular examination; Z79.82 Long term (current) use of aspirin
CPT/HCPCS: 25606; 93005; J0360; J0690; J1100; J1885; J2001; J2250; J2270; J2405; J2704; 76000; C1713